=== PATIENT | male | born 1960 | race African-American/Black ===

== ENCOUNTER 2016-10-20 22:18 | Emergency (ER) | payer OTHER ==
[2016-10-20 22:25] VITALS: PULSE 75; RESP 18; TEMP 99.1
[2016-10-20] MEDS ORDERED: NS 1,000 ML IV ONE (22:27)
--- NOTE | 2016-10-20 22:38 | EDPHY ---
H & P Stated Complaint: AP X6 HR, SENT FROM URGENT CARE: R/O APPY Source: Patient, Family Exam Limitations: No limitations - Personal History Current Tetanus/Diphtheria Vaccine: Unsure - Medical/Surgical History Hx Asthma: No Hx Chronic Respiratory Disease: No Hx Diabetes: No Hx Cardiac Disease: No Hx Renal Disease: No Hx Cirrhosis: No Hx Alcoholism: No Hx HIV/AIDS: No Hx Splenectomy or Spleen Trauma: No Other PMH: HTN - Social History Smoking Status: Never smoked HPI/ROS: CHIEF COMPLAINT: Abdominal pain HISTORY OF PRESENT ILLNESS: Patient complains of 5-6 hours of lower abdominal pain. This started abruptly at this time. It has been constant duration. Located just in the suprapubic region. [id number] pain. Worse with Valsalva and movement. No nausea or vomiting. Does report anorexia. No fever or chills. No urinary complaints. No flank pain. No hematuria. Patient says that he was googling this and feels that it is a hernia. He has no previous abdominal surgeries or diagnoses. No other associated complaints or modifying factors. Originally presented to [facility]. They were concerned for the possibility of appendicitis and sent him to our facility for higher level of care in CT scan. PREVIOUS ABDOMINAL SURGERIES/DIAGNOSES: None NPO: 12:00 p.m. solids and liquids REVIEW OF SYSTEMS: Ten systems reviewed and are negative unless otherwise noted in the HPI EXAMINATION: General Appearance: Alert, no distress Head: normocephalic, atraumatic Eyes: Pupils equal and round, no conjunctival pallor or injection ENT, Mouth: Mucous membranes moist Neck: Normal inspection, supple, non-tender Respiratory: Lungs are clear to auscultation. No wheezing, rhonchi or crackles. Cardiovascular: Regular rate and rhythm. Pulses intact distally. Gastrointestinal: Abdomen is soft. There is moderate tenderness and guarding in the lower abdomen. No tympany. No rigidity. No CVA tenderness. Non-acute abdomen. Back: non-tender, no bony abnormalities Neurological: A&O, nonfocal, normal gait Skin: Warm and dry, no rash Extremities: Nontender, no pedal edema Psychiatric: Mood and affect normal DIFFERENTIAL DIAGNOSES: Including but not limited to appendicitis, cystitis, colitis, enteritis, bladder calculus, hernia MDM: 10:30 p.m. Suprapubic and lower abdominal pain for 5 and half to 6 hours. The patient is guarding in the lower abdomen. Vital signs are stable. No active vomiting. No tympany rigidity. CT scan of the abdomen and pelvis has been ordered. Laboratory studies are currently being drawn. He is in no acute distress. 10:45 p.m. The point of care creatinine was 1.5. sterile supply technician requested that we await the chemistry result to determine if the patient should be injected with IV contrast. This is pending. 11:00 p.m. Creatinine by chemistry study is also 1.5. GFR is estimated at 49. Due to this we discussed this scenario in conjunction with Dr. Franks. Patient has received 1 L of IV fluid resuscitation, thus we will proceed with the CT scan of a with a low-dose of IV contrast. Will continue IV fluid resuscitation with this. 11:42 p.m. Notified by radiologist Dr. Garduno. CT scan reveals acute sigmoid diverticulitis without perforation. The appendix is well visualized and no abnormality associated with. 12:09 a.m. Acute, uncomplicated sigmoid diverticulitis. No appendicitis. Vital signs stable. The patient has required no pain medication of any kind during his stay in the emergency department. He has not been nauseated or vomiting. No fever. We discussed admission to the hospital versus outpatient management. He is comfortable with being discharged home. I do feel that he is stable to be treated outpatient as well. The confounding factor is that the patient is supposed to fly to [place] tomorrow. We discussed this and he has decided to flat on Saturday instead of Saturday. We discussed the possibility of outpatient failure including worsening clinical condition, failure of outpatient medication, perforation and abscess formation. He is comfortable with assuming this risk. Antibiotics have been started here. He will be discharged home with continuation antibiotics, as nausea medication and pain medication. He is to follow up with his primary care physician as soon as he returns from his trip. He is to return here tomorrow for worsening pain, fever , vomiting or intolerance of p.o. intake. He is to present to the nearest emergency department should he go on his trip next week and his symptoms worsen. He and his spouse are comfortable with this plan. We also discussed that his creatinine is elevated 1.5. We discussed that he needs to follow up with primary care physician to recheck this and monitor this, particularly as he is on an SAMUEL-inhibitor. He voices understanding of this. He is discharged home stable condition with the above plan. ED Precautions: Worsening pain. Fever. Bloody stools. Bloody emesis. Constipation or diarrhea. SUPERVISION: Patient was evaluated in conjunction with the supervising physician. Please see their note for details. (Juanjose Tinsley) Constitutional: Initial Vital Signs Temperature (C) 37.3 C 10/20/16 22:23 Heart Rate 75 10/20/16 22:23 Respiratory Rate 18 10/20/16 22:23 Blood Pressure 185/114 H 10/20/16 22:23 O2 Sat (%) 95 10/20/16 22:23 O2 Delivery Mode Room Air Allergies/Adverse Reactions: No Known Allergies Allergy (Unverified 10/20/16 22:22) Home Medications: Medication Instructions Recorded Lisinopril 10/20/16 Amoxicillin/Clavulanate Pot 875 mg PO BID #14 tab 10/21/16 [Augmentin 875 MG TAB (*)] Hydrocodone/APAP 5/325 [[place] 1 - 2 tab PO Q6H PRN #15 tab 10/21/16 5/325 (*)] Ondansetron Odt [Zofran Odt 4 mg 4 mg PO Q4 PRN #10 tab 10/21/16 (*)] Medical Decision Making - Diagnostics Imaging Results: Imaging Impressions Abdomen CT 10/20/16 22:28 Impression: 1. Mild acute sigmoid colon diverticulitis. 2. Normal CT appearance of the appendix. Findings were discussed with Juanjose Tinsley PA-C at 23:39, on 10/20/2016. Other Provider: PHYSICIAN DOCUMENTATION: The patient was evaluated and managed by the Physician Director Of Collections. My co- signature indicates that I have reviewed this chart and I agree with the findings and plan of care as documented. I am the secondary supervising physician. (Linda Franks) - Data Points Laboratory Results: Laboratory Results 10/20/16 22:40 10/20/16 22:40 10/20/16 10/20/16 10/20/16 22:40 22:40 22:40 WBC 10.24 10^3/uL H 10^3/uL (3.80-9.50) RBC 4.89 10^6/uL 10^6/uL (4.40-6.38) Hgb 14.8 g/dL g/dL (13.7-17.5) POC Hgb Hct 42.9 % % (40.0-51.0) POC Hct MCV 87.7 fL fL (81.5-99.8) MCH 30.3 pg pg (27.9-34.1) MCHC 34.5 g/dL g/dL (32.4-36.7) RDW 12.8 % % (11.5-15.2) Plt Count 169 10^3/uL 10^3/uL (150-400) MPV 11.2 fL fL (8.7-11.7) Neut % (Auto) 82.5 % H % (39.3-74.2) Lymph % (Auto) 9.9 % L % (15.0-45.0) Brooks % (Auto) 6.9 % % (4.5-13.0) Eos % (Auto) 0.1 % L % (0.6-7.6) Baso % (Auto) 0.2 % L % (0.3-1.7) Nucleat RBC Rel Count 0.0 % % (0.0-0.2) Absolute Neuts (auto) 8.45 10^3/uL H 10^3/uL (1.70-6.50) Absolute Lymphs (auto) 1.01 10^3/uL 10^3/uL (1.00-3.00) Absolute Monos (auto) 0.71 10^3/uL 10^3/uL (0.30-0.80) Absolute Eos (auto) 0.01 10^3/uL L 10^3/uL (0.03-0.40) Absolute Basos (auto) 0.02 10^3/uL 10^3/uL (0.02-0.10) Absolute Nucleated RBC 0.00 10^3/uL 10^3/uL (0-0.01) Immature Gran % 0.4 % % (0.0-1.1) Immature Gran # 0.04 10^3/uL 10^3/uL (0.00-0.10) PT 13.7 SEC SEC (12.0-15.0) INR 1.06 (0.83-1.16) APTT 25.9 SEC SEC (23.0-38.0) POC Sodium Sodium 137 mEq/L mEq/L (134-144) POC Potassium Potassium 4.3 mEq/L mEq/L (3.5-5.2) POC Chloride Chloride 105 mEq/L mEq/L (97-110) Carbon Dioxide 20 mEq/l L mEq/l (22-31) Anion Gap 12 mEq/L mEq/L (8-16) POC BUN BUN 15 mg/dL mg/dL (7-23) Creatinine 1.5 mg/dL H mg/dL (0.7-1.3) POC Creatinine Estimated GFR 49 Glucose 93 mg/dL mg/dL (70-100) POC Glucose Calcium 9.6 mg/dL mg/dL (8.5-10.4) Total Bilirubin 1.1 mg/dL mg/dL (0.1-1.4) Conjugated Bilirubin 0.3 mg/dL mg/dL (0.0-0.5) Unconjugated Bilirubin 0.8 mg/dL mg/dL (0.0-1.1) AST 21 IU/L IU/L (17-59) ALT 39 IU/L IU/L (21-72) Alkaline Phosphatase 61 IU/L IU/L (38-126) Total Protein 7.5 g/dL g/dL (6.3-8.2) Albumin 4.5 g/dL g/dL (3.5-5.0) Lipase 63.0 IU/L IU/L (23-300) 10/20/16 22:36 WBC RBC Hgb POC Hgb 15.3 gm/dL gm/dL (13.7-17.5) Hct POC Hct 45 % % (40-51) MCV MCH MCHC RDW Plt Count MPV Neut % (Auto) Lymph % (Auto) Brooks % (Auto) Eos % (Auto) Baso % (Auto) Nucleat RBC Rel Count Absolute Neuts (auto) Absolute Lymphs (auto) Absolute Monos (auto) Absolute Eos (auto) Absolute Basos (auto) Absolute Nucleated RBC Immature Gran % Immature Gran # PT INR APTT POC Sodium 141 mEq/L mEq/L (134-144) Sodium POC Potassium 4.0 mEq/L mEq/L (3.3-5.0) Potassium POC Chloride 103 mEq/L mEq/L (97-110) Chloride Carbon Dioxide Anion Gap POC BUN 15 mg/dL mg/dL (7-23) BUN Creatinine POC Creatinine 1.5 mg/dL H mg/dL (0.7-1.3) Estimated GFR Glucose POC Glucose 98 mg/dL mg/dL (70-100) Calcium Total Bilirubin Conjugated Bilirubin Unconjugated Bilirubin AST ALT Alkaline Phosphatase Total Protein Albumin Lipase Medications Given: Discontinued Medications Amoxicillin/Clavulanate Potassium (Augmentin 875mg) 875 mg PO EDNOW ONE PRN Reason: Protocol Stop: 10/20/16 23:58 Last Admin: 10/21/16 00:26 Dose: 875 mg Sodium Chloride (Ns) 1,000 mls @ 0 mls/hr IV ONCE ONE; Wide Open PRN Reason: Protocol Stop: 10/20/16 22:28 Last Admin: 10/20/16 23:24 Dose: 1,000 mls Ondansetron HCl (Zofran Odt 4 Mg Prepack#2) 1 btl TAKEHOME EDNOW ONE Stop: 10/20/16 23:59 Last Admin: 10/21/16 00:26 Dose: 1 btl Oxycodone/Acetaminophen (Percocet 5/325mg Prepack#4) 1 btl TAKEHOME EDNOW ONE Stop: 10/20/16 23:59 Last Admin: 10/21/16 00:27 Dose: 1 btl Point of Care Test Results: 10/20/16 22:36 POC Sodium 141 POC Potassium 4.0 POC Chloride 103 POC BUN 15 POC Creatinine 1.5 H POC Glucose 98 Departure - Departure Disposition: Home, Routine, Self-Care Clinical Impression: Lower abdominal pain, Sigmoid diverticulitis, Acute renal insufficiency Condition: Good Instructions: Ondansetron (By mouth), Narcotic-Analgesic/Acetaminophen (By mouth), Diverticulitis (ED) Additional Instructions: 1. Return to the emergency department for fever, worsening pain, bloody stools, emesis or intolerance of intake by mouth 2. Present to the nearest emergency department for any the above while on your trip next week 3. Follow up with primary care physician for definitive care of the diverticulitis as well as the elevated serum creatinine Referrals: Jono Tate MD [Primary Care Provider] - As per Instructions Campos Pleitez MD [Medical Doctor] - As per Instructions Stand Alone Forms: Airline Excuse Prescriptions: Amoxicillin/Clavulanate Pot [Augmentin 875 MG TAB (*)] 875 mg PO BID #14 tab Hydrocodone/APAP 5/325 [[place] 5/325 (*)] 1 - 2 tab PO Q6H PRN #15 tab PRN Reason: Pain, Breakthrough Ondansetron Odt [Zofran Odt 4 mg (*)] 4 mg PO Q4 PRN #10 tab PRN Reason: Nausea/Vomiting, Can'T Take Po
[2016-10-20] MEDS ORDERED: IOPAMIDOL (ISOVUE-300) 100 ML BTL ONE (22:41)
[2016-10-20 22:47] LABS: % IMMATURE GRANULYOCYTES 0.4 % (0.0-1.1); ABSOLUTE IMMATURE GRANULOCYTES 0.04 10^3/uL (0.00-0.10); ADD DIFF? NO; ADD MORPH? NO; ADD SCAN? NO; ATYPICAL LYMPHOCYTE FLAG 0 (0-99); FRAGMENT RBC FLAG 0 (0-99); HEMATOCRIT 42.9 % (40.0-51.0); HEMOGLOBIN 14.8 g/dL (13.7-17.5); LEFT SHIFT FLG 0 (0-99); LIPEMIA HEMOLYSIS FLAG 90 (0-99); MEAN CELL HEMOGLOBIN 30.3 pg (27.9-34.1); MEAN CELL HEMOGLOBIN CONCENTR. 34.5 g/dL (32.4-36.7); MEAN CELL VOLUME 87.7 fL (81.5-99.8); MEAN PLATELET VOLUME 11.2 fL (8.7-11.7); PLATELET CLUMPS FLAG 10 (0-99); PLATELET COUNT 169 10^3/uL (150-400); RED BLOOD CELL COUNT 4.89 10^6/uL (4.40-6.38); RED CELL DISTRIBUTION WIDTH 12.8 % (11.5-15.2)
[2016-10-20 22:58] LABS: ALANINE AMINOTRANSFERASE 39 IU/L (21-72); ALBUMIN 4.5 g/dL (3.5-5.0); ALKALINE PHOSPHATASE 61 IU/L (38-126); ANION GAP 12 mEq/L (8-16); ASPARTATE AMINOTRANSFERASE 21 IU/L (17-59); BILIRUBIN,TOTAL 1.1 mg/dL (0.1-1.4); BILIRUBIN-CONJUGATED 0.3 mg/dL (0.0-0.5); BILIRUBIN-UNCONJUGATED 0.8 mg/dL (0.0-1.1); CALCIUM 9.6 mg/dL (8.5-10.4); CARBON DIOXIDE 20 mEq/l (22-31); CHLORIDE 105 mEq/L (97-110); CREATININE 1.5 mg/dL (0.7-1.3); GLOMERULAR FILTRATION RATE 49; GLUCOSE 93 mg/dL (70-100); POTASSIUM 4.3 mEq/L (3.5-5.2); SODIUM 137 mEq/L (134-144); TOTAL PROTEIN 7.5 g/dL (6.3-8.2)
[2016-10-20 23:47] LABS: APTT 25.9 SEC (23.0-38.0); INR 1.06 (0.83-1.16); PROTIME(PATIENT) 13.7 SEC (12.0-15.0)
[2016-10-20] MEDS ORDERED: AMOXICILLIN/CLAVULANATE POT 875/125 MG TAB PO ONE (23:57)
[2016-10-20] MEDS ORDERED: OXYCODONE/APAP 5/325MG PREPACK#4 BTL TAKEHOME ONE (23:58)
[2016-10-20] MEDS ORDERED: ONDANSETRON 4MG PREPACK#2 BTL TAKEHOME ONE (23:58)
[2016-10-21 00:44] VITALS: BP 175/105; O2SAT 94
== END 2016-10-21 00:43 | disposition home or self-care (01) ==
DX: K57.32 Diverticulitis of large intestine without perforation or abscess without bleeding (principal); N28.9 Disorder of kidney and ureter, unspecified; I10 Essential (primary) hypertension
CPT/HCPCS: 82947-QW; Q9967